=== PATIENT | male | born 1995 | race Caucasian/White ===

== ENCOUNTER 2021-07-22 17:11 | Emergency (ER) | payer MEDICAID ==
[~2021-07-22] VITALS: Ht 170.2 cm; Wt 74.8 kg
--- NOTE | 2021-07-22 17:21 | NUR ---
BIBS C/O SUICIDAL IDEATION WITH PLAN TO JUMP IN FRONT OF A MOVING CAR, REQUESTING VOLUNTARY ADMISSION TO A PSYCH FACILITY, AAOX3, BREATHING EVEN AND NON LABORED, DENIES ANY PAIN, AWAITING MD ORDERS
--- NOTE | 2021-07-22 17:25 | NUR ---
URINE SPECIMEN COLLECTED AND SENT TO LAB
--- NOTE | 2021-07-22 17:55 | NUR ---
COVID ANTIGEN SWAB SENT TO LAB
[2021-07-22 18:26] LABS: BILIRUBIN,URINE SMALL (NEGATIVE); COLOR,URINE YELLOW (YELLOW); LEUKOCYTE ESTERASE ,URINE NEGATIVE (NEGATIVE); NITRITE, URINE NEGATIVE (NEGATIVE); PROTEIN,URINE NEGATIVE (NEGATIVE); UGLUCOSE NEGATIVE (NEGATIVE); UROBILINOGEN,URINE 0.2 EU/dL (0.2)
[2021-07-22 18:27] LABS: BASOPHILS # (AUTO) 0.1 K/uL (0.0-0.2); BASOPHILS % (AUTO) 0.7 % (0.0-2.0); EOSINOPHILS % (AUTO) 1.5 % (0.0-6.0); HEMATOCRIT 49 % (39-51); HEMOGLOBIN 16.2 g/dL (13.5-17.5); LYMPHOCYTES # (AUTO) 1.9 K/uL (0.8-4.8); LYMPHOCYTES % (AUTO) 20.2 % (20.0-44.0); MEAN CORPUSCULAR HGB CONC 33 g/dl (31.0-36.0); MEAN CORPUSCULAR VOLUME 89 fL (80-96); MONOCYTES # (AUTO) 0.8 K/uL (0.1-1.30); MONOCYTES % (AUTO) 7.9 % (2.0-12.0); NEUTROPHILS # (AUTO) 6.7 K/uL (1.8-8.9); NEUTROPHILS % (AUTO) 69.7 % (43.0-81.0); PLATELET COUNT (AUTO) 201 K/uL (150-450); RED BLOOD CELL COUNT(AUTO) 5.48 MIL/uL (4.5-6.0); WHITE BLOOD COUNT (AUTO) 9.6 K/uL (4.3-11.0)
[2021-07-22 18:33] LABS: BACTERIA,URINE RARE /HPF (None Seen); WBC,URINE 0-2 /HPF (0-3)
[2021-07-22 19:15] LABS: CALCIUM, SERUM 9.3 mg/dL (8.5-10.1); CARBON DIOXIDE 27 mmol/L (21-32); CHLORIDE 100 mmol/L (98-107); CREATININE 1.1 mg/dL (0.6-1.3); GLUCOSE 75 mg/dL (74-106); POTASSIUM 3.5 mmol/L (3.5-5.1); SODIUM SERUM 137 mmol/L (136-145); UREA NITROGEN, BLOOD 12 mg/dL (7-18)
[2021-07-22 19:19] LABS: ALANINE AMINOTRANSFERASE 19 U/L (12-78); ALBUMIN 4.3 g/dL (3.4-5.0); ALCOHOL, BLOOD < 3 mg/dL (0-0); ALKALINE PHOSPHATASE 68 U/L (46-116); ASPARTATE AMINOTRANSFERASE 22 U/L (15-37); BILIRUBIN,DIRECT 0.1 mg/dL (0.0-0.2); BILIRUBIN,TOTAL 0.5 mg/dL (0.2-1.0); TOTAL PROTEIN, SERUM 8.3 g/dL (6.4-8.2)
[2021-07-22 19:22] LABS: ACETAMINOPHEN < 2 ug/ml (10-30)
--- NOTE | 2021-07-22 20:55 | NUR ---
FACESHEET AND CLINICALS FAXED TO [facility].
--- NOTE | 2021-07-22 21:34 | NUR ---
ONCE PT INSURANCE IS VERIFIED, WILL CONTACT [facility] [place] [place].
--- NOTE | 2021-07-22 23:18 | NUR ---
UPDATED INSURANCE INFORMATION FAXED TO [facility]
--- NOTE | 2021-07-23 02:09 | NUR ---
ACCEPTED AT [facility] UNDER DR CALDERON UN[address] FOR REPORT
--- NOTE | 2021-07-23 02:11 | NUR ---
PER ARA DISPATCHER AT [facility], PT WILL BE TRANSPORTED IN ONE HOUR
--- NOTE | 2021-07-23 02:15 | NUR ---
REPORT GIVEN TO JO[place] AT [facility]
[2021-07-23 04:08] VITALS: BP 132/70
--- NOTE | 2021-07-23 04:08 | NUR ---
patient transferred to [facility] via ambulance in stable condition.
== END 2021-07-23 04:09 ==
LOC: ER 17:16
DX: R45.851 Suicidal ideations (principal); F32.A Depression, unspecified; Z20.822 Contact with and (suspected) exposure to COVID-19
CPT/HCPCS: 36415; 80048; 80076; 80143; 80307; 80320; 81001; 85025; 87426; 99285; C9803; G0480

== ENCOUNTER 2021-08-27 03:30 | Emergency (ER) | payer MEDICAID ==
[~2021-08-27] VITALS: Ht 167.6 cm; Wt 79.4 kg
--- NOTE | 2021-08-27 04:07 | NUR ---
ANA. TO ER BED 18. AAOX4. NOT IN RESP DISTRESS. AMBUALTORY. BROUGHTIN FOR SUICIDAL THOUGHT W/ PLAN TO CUT HIMSELF. PT VERBALIZES THAT HE IS FEELING DEPRESSED BECAUSE HE LOST A FAMILY MEMBER LAST MONTH. PT IS SEEKING VOLUNTARY ADMISSION. PT DENIES HI. PT IS GOWN, BELONGINGS TAKEN AWAY AND SITTER WITHIN SIGHT. AWAITING MD FOR EVAL. URINE COLLECETD AND SENT TO LAB
[2021-08-27 04:55] LABS: BASOPHILS % (AUTO) 0.6 % (0.0-2.0); EOSINOPHILS % (AUTO) 1.9 % (0.0-6.0); HEMATOCRIT 44 % (39-51); HEMOGLOBIN 14.9 g/dL (13.5-17.5); LYMPHOCYTES # (AUTO) 2.2 K/uL (0.8-4.8); LYMPHOCYTES % (AUTO) 26.3 % (20.0-44.0); MEAN CORPUSCULAR HGB CONC 34 g/dl (31.0-36.0); MEAN CORPUSCULAR VOLUME 89 fL (80-96); MONOCYTES # (AUTO) 0.7 K/uL (0.1-1.30); MONOCYTES % (AUTO) 8.7 % (2.0-12.0); NEUTROPHILS # (AUTO) 5.3 K/uL (1.8-8.9); NEUTROPHILS % (AUTO) 62.5 % (43.0-81.0); PLATELET COUNT (AUTO) 205 K/uL (150-450); RED BLOOD CELL COUNT(AUTO) 4.97 MIL/uL (4.5-6.0); WHITE BLOOD COUNT (AUTO) 8.5 K/uL (4.3-11.0)
[2021-08-27 05:26] LABS: BILIRUBIN,URINE NEGATIVE (NEGATIVE); COLOR,URINE YELLOW (YELLOW); LEUKOCYTE ESTERASE ,URINE NEGATIVE (NEGATIVE); NITRITE, URINE NEGATIVE (NEGATIVE); PH,URINE 6.5 (5.0-8.0); PROTEIN,URINE NEGATIVE (NEGATIVE); UGLUCOSE NEGATIVE (NEGATIVE); UROBILINOGEN,URINE 0.2 EU/dL (0.2)
[2021-08-27 05:37] LABS: BACTERIA,URINE Rare /HPF (None Seen); SQUAMOUS EPITHELIAL CELL,UR 0-2 /HPF (None Seen); WBC,URINE 0-2 /HPF (0-3)
--- NOTE | 2021-08-27 07:53 | NUR ---
BREAKFAST TRAY PROVIDED, ATE 100%
[2021-08-27 08:16] LABS: POTASSIUM 3.9 mmol/L (3.5-5.1)
[2021-08-27 10:55] LABS: ALBUMIN 3.7 g/dL (3.4-5.0); BILIRUBIN,TOTAL 0.2 mg/dL (0.2-1.0); CALCIUM, SERUM 8.8 mg/dL (8.5-10.1)
--- NOTE | 2021-08-27 11:45 | NUR ---
FAXED FACE SHEET AND CLINICALS TO [facility]
[2021-08-27] MEDS ORDERED: ACETAMINOPHEN 325 MG TABLET PO ONE (13:00)
--- NOTE | 2021-08-27 13:11 | NUR ---
FOLLOWED UP WITH [facility] INTAKE FOR PLACEMENT. WILL WAIT FOR CALL BACK
[2021-08-27] MEDS ORDERED: ACETAMINOPHEN 325 MG TABLET ONE (13:16)
--- NOTE | 2021-08-27 18:12 | NUR ---
FOLLOWED UP WITH [facility] SPOKE WITH ART BUT STILL WAITING FOR CHARGE NURSE
--- NOTE | 2021-08-27 18:40 | NUR ---
ACCEPTED AT [facility]. GIVE REPORT TO NURSING TECHNICAL PROJECT LEAD JESSICA. # FOR REPORT [phone] EXT [phone]
--- NOTE | 2021-08-27 18:56 | NUR ---
TRIED GIVING REPORT TO JESSICA SHARDA KIRBY. PER JESSICA THERE IS NO ADMITTING DOCTOR YET, WILL CALL ER ONCE THERE IS AN ADMITTING DOCTOR
--- NOTE | 2021-08-27 19:01 | NUR ---
[facility] INTA[facility] CALLED. ADMITTING . DR HENLEY.
--- NOTE | 2021-08-27 19:04 | NUR ---
ARRANGED BLS TRANSPORT WITH [facility] TO [facility]. SPOKE WITH EUNICE. ETA IS 30 MIN
[2021-08-27 19:30] VITALS: BP 132/72
--- NOTE | 2021-08-27 19:48 | NUR ---
REPORT GIVEN TO IJ FOR GINA
== END 2021-08-27 20:03 ==
LOC: ER 03:43
DX: R45.851 Suicidal ideations (principal); F32.A Depression, unspecified; Z20.822 Contact with and (suspected) exposure to COVID-19
CPT/HCPCS: 36415; 80048; 80076; 80143; 80307; 80320; 81001; 85025; 87426; 99285; C9803; G0480

== ENCOUNTER 2021-09-23 18:30 | Emergency (ER) | payer MEDICAID ==
[~2021-09-23] VITALS: Ht 170.2 cm; Wt 79.4 kg
[2021-09-23 19:19] LABS: BILIRUBIN,URINE NEGATIVE (NEGATIVE); COLOR,URINE YELLOW (YELLOW); LEUKOCYTE ESTERASE ,URINE NEGATIVE (NEGATIVE); NITRITE, URINE NEGATIVE (NEGATIVE); PROTEIN,URINE NEGATIVE (NEGATIVE); UGLUCOSE NEGATIVE (NEGATIVE); UROBILINOGEN,URINE 0.2 EU/dL (0.2)
[2021-09-23 19:30] LABS: BACTERIA,URINE None seen /HPF (None Seen); SQUAMOUS EPITHELIAL CELL,UR Few /HPF (None Seen)
[2021-09-23 19:41] LABS: CALCIUM, SERUM 8.9 mg/dL (8.5-10.1); CARBON DIOXIDE 31 mmol/L (21-32); CHLORIDE 104 mmol/L (98-107); CREATININE 1.1 mg/dL (0.6-1.3); GLUCOSE 70 mg/dL (74-106); POTASSIUM 4.2 mmol/L (3.5-5.1); SODIUM SERUM 139 mmol/L (136-145); UREA NITROGEN, BLOOD 12 mg/dL (7-18)
[2021-09-23 19:47] LABS: ALANINE AMINOTRANSFERASE 23 U/L (12-78); ALBUMIN 3.9 g/dL (3.4-5.0); ALCOHOL, BLOOD < 3 mg/dL (0-0); ALKALINE PHOSPHATASE 102 U/L (46-116); ASPARTATE AMINOTRANSFERASE 24 U/L (15-37); BILIRUBIN,DIRECT 0.1 mg/dL (0.0-0.2); BILIRUBIN,TOTAL 0.2 mg/dL (0.2-1.0); TOTAL PROTEIN, SERUM 7.3 g/dL (6.4-8.2)
[2021-09-23 19:50] LABS: ACETAMINOPHEN < 0 ug/ml (10-30)
[2021-09-23 20:44] LABS: BASOPHILS % (AUTO) 0.4 % (0.0-2.0); EOSINOPHILS % (AUTO) 1.3 % (0.0-6.0); HEMATOCRIT 44 % (39-51); HEMOGLOBIN 15.1 g/dL (13.5-17.5); LYMPHOCYTES % (AUTO) 21.6 % (20.0-44.0); MEAN CORPUSCULAR HGB CONC 34 g/dl (31.0-36.0); MEAN CORPUSCULAR VOLUME 87 fL (80-96); MONOCYTES # (AUTO) 0.8 K/uL (0.1-1.30); MONOCYTES % (AUTO) 8.8 % (2.0-12.0); NEUTROPHILS # (AUTO) 6.3 K/uL (1.8-8.9); NEUTROPHILS % (AUTO) 67.9 % (43.0-81.0); PLATELET COUNT (AUTO) 223 K/uL (150-450); RED BLOOD CELL COUNT(AUTO) 5.06 MIL/uL (4.5-6.0); WHITE BLOOD COUNT (AUTO) 9.3 K/uL (4.3-11.0)
--- NOTE | 2021-09-24 07:30 | NUR ---
ASSESSED PT ON BED ASLEEP EASILY AROUSABLE, NOT IN RESPIRATORY DISTRESS, V/S STABLE, KEPT RESTED AND COMFORTABLE. WILL CONTINUE TO MONITOR.
--- NOTE | 2021-09-24 08:01 | NUR ---
BREAKFAST TRAY PROVIDED.
--- NOTE | 2021-09-24 09:00 | NUR ---
BREAKFAST TRAY PROVIDED.
--- NOTE | 2021-09-24 09:32 | NUR ---
CALLED [facility] INTAKE AWAITING FEEDBACK FROM [facility] AND [facility] PER ANALISA
--- NOTE | 2021-09-24 12:01 | NUR ---
[facility] RN REPORT [phone] EXT [phone] MD
--- NOTE | 2021-09-24 12:31 | NUR ---
[facility] CALLED FOR TRANSPORT ETA 45 MINS PER EUNICE.
--- NOTE | 2021-09-24 12:57 | NUR ---
REPORT GIVEN TO NURSE KEVIN FROM [facility]
--- NOTE | 2021-09-24 13:05 | NUR ---
PICKED UP BY [facility] [address] IN STABLE CONDITION. ALL BELONGINGS GIVEN BACK TO THE PATIENT. CLINICALS PROVIDED TO EMT TO BE GIEN TO [facility].
[2021-09-24 13:06] VITALS: BP 109/65
== END 2021-09-24 13:09 ==
LOC: ER 18:33
DX: R45.851 Suicidal ideations (principal); Z59.00 Homelessness unspecified; F32.A Depression, unspecified; Z20.822 Contact with and (suspected) exposure to COVID-19; F19.10 Other psychoactive substance abuse, uncomplicated
CPT/HCPCS: 36415; 80048; 80076; 80143; 80307; 80320; 81001; 85025; 87426; 99285; C9803; G0480

== ENCOUNTER 2022-01-06 21:35 | Emergency (ER) | payer MEDICAID ==
[~2022-01-06] VITALS: Ht 167.6 cm; Wt 77.1 kg
[2022-01-06] MEDS ORDERED: OLANZAPINE 5 MG TABLET ONE (23:22)
[2022-01-06] MEDS ORDERED: OLANZAPINE 5 MG TABLET PO ONE (23:30)
[2022-01-07 00:06] LABS: BILIRUBIN,URINE NEGATIVE (NEGATIVE); COLOR,URINE YELLOW (YELLOW); LEUKOCYTE ESTERASE ,URINE NEGATIVE (NEGATIVE); NITRITE, URINE NEGATIVE (NEGATIVE); PH,URINE 6.5 (5.0-8.0); PROTEIN,URINE NEGATIVE (NEGATIVE); UGLUCOSE NEGATIVE (NEGATIVE); UROBILINOGEN,URINE 0.2 EU/dL (0.2)
[2022-01-07 00:13] LABS: BASOPHILS # (AUTO) 0.1 K/uL (0.0-0.2); BASOPHILS % (AUTO) 0.6 % (0.0-2.0); EOSINOPHILS % (AUTO) 0.5 % (0.0-6.0); HEMATOCRIT 45 % (39-51); HEMOGLOBIN 15.2 g/dL (13.5-17.5); LYMPHOCYTES # (AUTO) 2.4 K/uL (0.8-4.8); LYMPHOCYTES % (AUTO) 23.5 % (20.0-44.0); MEAN CORPUSCULAR HGB CONC 33 g/dl (31.0-36.0); MEAN CORPUSCULAR VOLUME 87 fL (80-96); MONOCYTES # (AUTO) 1.2 K/uL (0.1-1.30); MONOCYTES % (AUTO) 11.1 % (2.0-12.0); NEUTROPHILS # (AUTO) 6.7 K/uL (1.8-8.9); NEUTROPHILS % (AUTO) 64.3 % (43.0-81.0); PLATELET COUNT (AUTO) 215 K/uL (150-450); RED BLOOD CELL COUNT(AUTO) 5.21 MIL/uL (4.5-6.0); WHITE BLOOD COUNT (AUTO) 10.4 K/uL (4.3-11.0)
[2022-01-07 00:29] LABS: CALCIUM, SERUM 8.5 mg/dL (8.5-10.1); CARBON DIOXIDE 28 mmol/L (21-32); CHLORIDE 104 mmol/L (98-107); GLUCOSE 96 mg/dL (74-106); POTASSIUM 3.3 mmol/L (3.5-5.1); SODIUM SERUM 138 mmol/L (136-145); UREA NITROGEN, BLOOD 9 mg/dL (7-18)
[2022-01-07 00:33] LABS: ALANINE AMINOTRANSFERASE 30 U/L (12-78); ALKALINE PHOSPHATASE 86 U/L (46-116); ASPARTATE AMINOTRANSFERASE 20 U/L (15-37); BILIRUBIN,DIRECT 0.1 mg/dL (0.0-0.2); BILIRUBIN,TOTAL 0.5 mg/dL (0.2-1.0)
[2022-01-07 00:34] LABS: ALBUMIN 3.9 g/dL (3.4-5.0); ALCOHOL, BLOOD < 3 mg/dL (0-0); TOTAL PROTEIN, SERUM 7.3 g/dL (6.4-8.2)
[2022-01-07 00:37] LABS: ACETAMINOPHEN 0 ug/ml (10-30)
--- NOTE | 2022-01-07 01:28 | NUR ---
FACESHEET AND CLINICALS FAXED TO [facility].
[2022-01-07 02:34] LABS: BACTERIA,URINE Rare /HPF (None Seen); SQUAMOUS EPITHELIAL CELL,UR Few /HPF (None Seen)
--- NOTE | 2022-01-07 04:46 | NUR ---
PT ACCEPTED TO [facility] UNDER DR DOAN. NUMBER FOR REPORT IS [phone] JOHN CURTIS.
--- NOTE | 2022-01-07 04:47 | NUR ---
[facility] CALLED FOR TRANSPORT. ETA 60 MINUTES.
--- NOTE | 2022-01-07 06:11 | NUR ---
REPORT GIVEN TO KIRSTEN LOPEZ FOR CONTINUATION OF CARE.
[2022-01-07 07:35] VITALS: BP 152/91
--- NOTE | 2022-01-07 07:55 | NUR ---
PICKED UP BY TRANSPORT IN STABLE CONDITION
== END 2022-01-07 08:14 ==
LOC: ER 21:42
DX: R45.851 Suicidal ideations (principal); F32.A Depression, unspecified; Z59.00 Homelessness unspecified; Z20.822 Contact with and (suspected) exposure to COVID-19
CPT/HCPCS: 99285; 85025; 80048; 80076; 81001; 36415; 87426; 80143; 80320; 80307; C9803; G0480

== ENCOUNTER 2022-02-08 10:55 | Emergency (ER) | payer MEDICAID ==
[~2022-02-08] VITALS: Ht 170.2 cm; Wt 70.3 kg
--- NOTE | 2022-02-08 11:37 | NUR ---
BIBS REQUESTING VOLUNTARY ADMISSION TO PSYCH FACILITY,SUICIDAL PRECAUTION IMPLEMENTED,1:1 SITTER, SECURITY CALLED FOR WANDING,CAONTRABAND REMOVED
[2022-02-08 12:42] LABS: BASOPHILS % (AUTO) 0.5 % (0.0-2.0); EOSINOPHILS % (AUTO) 1.4 % (0.0-6.0); HEMATOCRIT 50 % (39-51); HEMOGLOBIN 16.3 g/dL (13.5-17.5); LYMPHOCYTES # (AUTO) 1.8 K/uL (0.8-4.8); LYMPHOCYTES % (AUTO) 23.7 % (20.0-44.0); MEAN CORPUSCULAR HGB CONC 33 g/dl (31.0-36.0); MEAN CORPUSCULAR VOLUME 87 fL (80-96); MONOCYTES # (AUTO) 0.5 K/uL (0.1-1.30); MONOCYTES % (AUTO) 7.3 % (2.0-12.0); NEUTROPHILS % (AUTO) 67.1 % (43.0-81.0); PLATELET COUNT (AUTO) 199 K/uL (150-450); RED BLOOD CELL COUNT(AUTO) 5.72 MIL/uL (4.5-6.0); WHITE BLOOD COUNT (AUTO) 7.5 K/uL (4.3-11.0)
[2022-02-08 13:01] LABS: ALANINE AMINOTRANSFERASE 32 U/L (12-78); ALBUMIN 3.8 g/dL (3.4-5.0); ALCOHOL, BLOOD < 3 mg/dL (0-0); ALKALINE PHOSPHATASE 68 U/L (46-116); ASPARTATE AMINOTRANSFERASE 24 U/L (15-37); BILIRUBIN,DIRECT 0.1 mg/dL (0.0-0.2); BILIRUBIN,TOTAL 0.6 mg/dL (0.2-1.0); CALCIUM, SERUM 8.9 mg/dL (8.5-10.1); CARBON DIOXIDE 29 mmol/L (21-32); CHLORIDE 104 mmol/L (98-107); GLUCOSE 102 mg/dL (74-106); POTASSIUM 3.7 mmol/L (3.5-5.1); SODIUM SERUM 142 mmol/L (136-145); TOTAL PROTEIN, SERUM 7.4 g/dL (6.4-8.2); UREA NITROGEN, BLOOD 9 mg/dL (7-18)
[2022-02-08 13:05] LABS: ACETAMINOPHEN < 10 ug/ml (10-30)
--- NOTE | 2022-02-08 14:53 | NUR ---
URINE COLLECTED AND SENT TO THE LAB
--- NOTE | 2022-02-08 14:53 | NUR ---
URINE COLLECTED AND SENT TO0 T
--- NOTE | 2022-02-08 14:53 | NUR ---
Sharath manrique in [facility] - 02/08/22 at 1453 by DANIEL URINE COLLECTED AND SENT TO0 T
[2022-02-08 16:30] LABS: BILIRUBIN,URINE NEGATIVE (NEGATIVE); COLOR,URINE YELLOW (YELLOW); LEUKOCYTE ESTERASE ,URINE NEGATIVE (NEGATIVE); NITRITE, URINE NEGATIVE (NEGATIVE); PROTEIN,URINE NEGATIVE (NEGATIVE); UGLUCOSE NEGATIVE (NEGATIVE); UROBILINOGEN,URINE 0.2 EU/dL (0.2)
[2022-02-08 16:56] LABS: BACTERIA,URINE Few /HPF (None Seen); WBC,URINE 0-2 /HPF (0-3)
[2022-02-08 16:57] LABS: SQUAMOUS EPITHELIAL CELL,UR Few /HPF (None Seen)
--- NOTE | 2022-02-08 19:22 | NUR ---
FAXED CLINICALS TO [facility] INTAKE
--- NOTE | 2022-02-08 20:59 | NUR ---
CALLED [facility] INTAKE [phone] SPOKE WITH MAY, AWAITING FEEDBACK FROM SUP.
--- NOTE | 2022-02-08 22:10 | NUR ---
ACCEPTED BY DR CALDERON AT [facility] [phone]
--- NOTE | 2022-02-08 22:13 | NUR ---
[facility] CALLED FOR BLS TO [facility] ETA - MIDNIGHT
--- NOTE | 2022-02-09 00:45 | NUR ---
[facility] AT BED SIDE TO [facility]VENTION OFFICER THE PT. REPORT GIVEN TO KIRSTEN AT [facility]
[2022-02-09 00:55] VITALS: BP 128/71
== END 2022-02-09 00:56 ==
LOC: ER 11:18
DX: R45.851 Suicidal ideations (principal); R45.850 Homicidal ideations; Z20.822 Contact with and (suspected) exposure to COVID-19; F12.10 Cannabis abuse, uncomplicated; Z59.00 Homelessness unspecified; F32.A Depression, unspecified
CPT/HCPCS: 99285; 85025; 80048; 80076; 81001; 36415; 87426; 80143; 80320; 80307; C9803; G0480